=== PATIENT | male | born 1965 | race Caucasian/White ===

== ENCOUNTER 2016-10-11 16:42 | Emergency (ER) | payer OTHER ==
[~2016-10-11] VITALS: Ht 188 cm; Wt 152.5 kg
[~2016-10-11 16:42] MED LIST: ANAPROX DS550 M1 PO; ENDOCET 5-3251 EACH PO; FLEXERIL5 MG PO; LISINOPRIL20 MG PO; LYRICA75 MG PO; MELOXICAM15 MG PO; MOBIC15 MG PO; MOTRIN800 MG PO; NAPROSYN500 MG PO; NAPROXEN500 MG PO; NICOTINE PATCH1 EAC2 TD; NORCO 5/3251 TABLET PO; PEN-VEE K,VEET500 MG PO; PERCOCET 5/31 TABLET PO; TYLENOL EXTRA500 MG PO; ULTRAM50 MG PO; VALIUM2 MG PO
[2016-10-11] MEDS ORDERED: PERCOCET 7.51 TABLET PO (17:33)
[2016-10-11] MEDS ORDERED: PREDNISONE20 MG PO (17:33)
[2016-10-11] MEDS ORDERED: MOBIC15 MG PO (17:33)
[2016-10-11 17:50] VITALS: BP 149/106
== END 2016-10-11 17:50 | disposition home or self-care (01) ==
LOC: EME 16:42 → RME 16:42
DX: M17.0 Bilateral primary osteoarthritis of knee (principal); G89.29 Other chronic pain; I10 Essential (primary) hypertension; F17.200 Nicotine dependence, unspecified, uncomplicated
CPT/HCPCS: 99281; 99284; J7512

== ENCOUNTER 2016-10-23 12:14 | Emergency (ER) | payer OTHER ==
[~2016-10-23] VITALS: Ht 188 cm; Wt 150.8 kg
[~2016-10-23 12:14] MED LIST changes: +PERCOCET 7.51 TABLET PO; +PREDNISONE20 MG PO
[2016-10-23 12:42] VITALS: BP 118/80
== END 2016-10-23 14:55 | disposition left against medical advice (07) ==
LOC: EME 12:14
DX: M25.561 Pain in right knee (principal); Z53.21 Procedure and treatment not carried out due to patient leaving prior to being seen by health care provider; M25.562 Pain in left knee; F17.200 Nicotine dependence, unspecified, uncomplicated

== ENCOUNTER 2017-05-27 15:56 | Emergency (ER) | payer OTHER ==
[~2017-05-27] VITALS: Ht 188 cm; Wt 140.9 kg
[2017-05-27] MEDS ORDERED: PERCOCET 5/31 TABLET PO (18:28)
[2017-05-27] MEDS ORDERED: PREDNISONE50 MG PO (18:28)
[2017-05-27 18:43] VITALS: BP 147/91
== END 2017-05-27 19:00 | disposition home or self-care (01) ==
LOC: EME 15:56
DX: S93.401A Sprain of unspecified ligament of right ankle, initial encounter (principal); M54.2 Cervicalgia; X50.1XXA Overexertion from prolonged static or awkward postures, initial encounter; Y93.01 Activity, walking, marching and hiking; I10 Essential (primary) hypertension; F17.200 Nicotine dependence, unspecified, uncomplicated; Z88.6 Allergy status to analgesic agent
CPT/HCPCS: 73610; 99281; 99283

== ENCOUNTER 2017-08-26 18:41 | Emergency (ER) | payer OTHER ==
[~2017-08-26] VITALS: Ht 188 cm; Wt 156.7 kg
[~2017-08-26 18:41] MED LIST changes: +PREDNISONE50 MG PO
[2017-08-26] MEDS ORDERED: PERCOCET 5/31 TABLET PO (21:19)
[2017-08-26] MEDS ORDERED: DELTASONE20 M1 PO (21:19)
[2017-08-26 21:27] VITALS: BP 123/86
== END 2017-08-26 21:28 | disposition home or self-care (01) ==
LOC: EME 18:41
DX: S16.1XXA Strain of muscle, fascia and tendon at neck level, initial encounter (principal); F17.200 Nicotine dependence, unspecified, uncomplicated; Z88.5 Allergy status to narcotic agent; Z88.6 Allergy status to analgesic agent
CPT/HCPCS: 99281; 99283; J8540

== ENCOUNTER 2018-01-27 07:10 | Emergency (ER) | payer OTHER ==
[~2018-01-27] VITALS: Ht 188 cm; Wt 156.2 kg
[~2018-01-27 07:10] MED LIST changes: +DELTASONE20 M1 PO
[2018-01-27] MEDS ORDERED: FLEXERIL10 MG PO (09:14)
[2018-01-27] MEDS ORDERED: LIDODERM 5% P1 PATCH TD (09:14)
[2018-01-27 10:00] VITALS: BP 133/89
== END 2018-01-27 10:04 | disposition home or self-care (01) ==
LOC: EME 07:10
DX: S16.1XXA Strain of muscle, fascia and tendon at neck level, initial encounter (principal); M54.12 Radiculopathy, cervical region; X50.9XXA Other and unspecified overexertion or strenuous movements or postures, initial encounter; Y93.89 Activity, other specified; Z88.6 Allergy status to analgesic agent; Z88.5 Allergy status to narcotic agent
CPT/HCPCS: 72040; 99281; 99284